=== PATIENT | male | born 1965 | race Two or more races ===

== ENCOUNTER 2017-02-25 13:36 | Inpatient (IN) | payer OTHER ==
[2017-02-25 14:50] VITALS: BMI 28.8
--- NOTE | 2017-02-25 17:14 | HP ---
COWS - Scale Resting Pulse: 0= [place] 80 or Below Sweatin= Chills/Flushing Restless Observation: 3= Extraneous Movement Pupil Size: 0= Normal to Room Light Bone or Joint Aches: 2= Severe Diffuse Aches Runny Nose/ Eye Tearin= Runny Nose/Eyes GI Upset > 30mins: 2= Nausea/Diarrhea Tremor Observation: 2= Slight Tremor Visible Yawning Observation: 0= None Anxiety or Irritability: 2=Irritable/Anxious Goose Flesh Skin: 0=Smooth Skin COWS Score: 14 Admission [facility] Chief Complaint: withdrawal sx Allergies/Adverse Reactions: Allergies Allergy/AdvReac Type Severity Reaction Status Date / Time No Known Allergies Allergy Verified 03/08/14 15:52 History of Present Illness: 51 years old male with long history of heroin nicotine xanax dependence denies medical issue denies mental illness is admitted to detox Exam Limitations: No Limitations - Ebola screening Have you traveled outside of the country in the last 21 days: No Have you had contact with anyone from an Ebola affected area: No Have you been sick,other than usual withdrawal symptoms: No Do you have a fever: No - Review of Systems Constitutional: Changes in sleep, Weight Stable EENT: reports: No Symptoms Reported Respiratory: reports: No Symptoms reported Cardiac: reports: No Symptoms Reported GI: reports: Nausea, Poor Fluid Intake, Abdominal cramping : reports: No Symptoms Reported Musculoskeletal: reports: Back Pain, Joint Pain, Muscle Pain, Neck Pain Integumentary: reports: No Symptoms Reported Neuro: reports: Tremors Endocrine: reports: No Symptoms Reported Hematology: reports: No Symptoms Reported Psychiatric: reports: Judgement Intact, Mood/Affect Appropiate, Orientated x3 Other Systems: Reviewed and Negative Patient History - Patient Medical History Hx Anemia: No Hx Asthma: No Hx Chronic Obstructive Pulmonary Disease (COPD): No Hx Cancer: No Hx Cardiac Disorders: No Hx Congestive Heart Failure: No Hx Hypertension: No (BP: 140/89 dietary control/last dose 3-4 years ago) Hx Hypercholesterolemia: No (dietary control) Hx Pacemaker: No HX Cerebrovascular Accident: No Hx Seizures: No Hx Dementia: No Hx Diabetes: No Hx Gastrointestinal Disorders: No Hx Liver Disease: No Hx Genitourinary Disorders: No Hx Sexually Transmitted Disorders: No Hx Renal Disease (ESRD): No Hx Thyroid Disease: No Hx Human Immunodeficiency Virus (HIV): No Hx Hepatitis C: No Hx Depression: No Hx Suicide Attempt: No Hx Bipolar Disorder: No Hx Schizophrenia: No - Patient Surgical History Past Surgical History: Yes Hx Neurologic Surgery: Yes () Hx Cataract Extraction: No Hx Cardiac Surgery: No Hx Lung Surgery: No Hx Breast Surgery: No Hx Breast Biopsy: No Hx Abdominal Surgery: No Hx Appendectomy: No Hx Cholecystectomy: No Hx Genitourinary Surgery: No Hx Orthopedic Surgery: No Anesthesia Reaction: No - PPD History Previous Implant?: Yes Documented Results: Negative w/proof Implanted On Prior [facility] Admission?: Yes Date: 02/22/17 Results: 0mm PPD to be Administered?: No - Smoking Cessation Smoking history: Current every day smoker Have you smoked in the past 12 months: Yes Aproximately how many cigarettes per day: 20 Cigars Per Day: 0 Hx Chewing Tobacco Use: No Initiated information on smoking cessation: Yes 'Breaking Loose' booklet given: 02/25/17 - Substance & Tx. History Hx Alcohol Use: No Hx Substance Use: Yes Substance Use Type: Heroin, Tranquilizers Hx Substance Use Treatment: Yes (2014) - Substances Abused Heroin Route: Inhalation Frequency: Daily Amount used: 5 bags Age of first use: 50 Date of Last Use: 02/25/17 Alprazolam (Xanax) Route: Oral Frequency: 3-6 times per week Amount used: 2mg Age of first use: 50 Date of Last Use: 02/11/17 Percocet Route: Oral Frequency: 3-6 times per week Amount used: 1-2 tabs Age of first use: 32 Date of Last Use: 02/11/17 Family Disease History - Family Disease History Family Disease History: CA: Grandparent, Father, Sister Admission Physical Exam BHS - Vital Signs Vital Signs: Vital Signs - 24 hr 02/25/17 14:48 Temperature 97.4 F L Pulse Rate 73 Respiratory 20 Rate Blood Pressure 140/89 - Physical General Appearance: Yes: Nourished, Appropriately Dressed, Mild Distress, Tremorous, Irritable, Sweating, Anxious HEENTM: Yes: Hearing grossly Normal, Normal ENT Inspection, Normocephalic, Normal Voice Respiratory: Yes: Chest Non-Tender, Lungs Clear, Normal Breath Sounds, No Respiratory Distress, No Accessory Muscle Use Neck: Yes: Supple, Trachea in good position Breast: Yes: Breasts Symetrical Cardiology: Yes: Regular Rhythm, Regular Rate, S1, S2 Abdominal: Yes: Non Tender, Soft, Increased Bowel Sounds Genitourinary: Yes: Within Normal Limits Back: Yes: Normal Inspection, Surgical Scar Musculoskeletal: Yes: full range of Motion, Gait Steady, Back pain, Muscle Pain Extremities: Yes: Normal Inspection, Normal Range of Motion, Non-Tender, Tremors Neurological: Yes: Fully Oriented, Alert, Motor Strength 5/5, Normal Mood/Affect , Normal Response Integumentary: Yes: Warm Lymphatic: Yes: Within Normal Limits - Diagnostic (1) Opioid dependence with withdrawal Current Visit: Yes Status: Acute (2) Nicotine dependence Current Visit: Yes Status: Acute Qualifiers: Nicotine product type: cigarettes Substance use status: in withdrawal Qualified Code(s): F17.213 - Nicotine dependence, cigarettes, with withdrawal; F17.213 - Nicotine dependence, cigarettes, with withdrawal (3) History of hypertension Current Visit: Yes Status: Resolved Comment: DIETARY CONTROL (4) History of hyperlipidemia Current Visit: Yes Status: Resolved Comment: DIETARY CONTROL (5) History of lumbar fusion Current Visit: Yes Status: Resolved Comment: 1993 Cleared for Admission [facility] - Detox or Rehab [facility] Level of Care: Medically Managed Detox Regimen/Protocol: Methadone [facility] Breath Alcohol Content Breath Alcohol Content: 0 Urine Drug Screen - Results Drug Screen Negative: No Urine Drug Screen Results: OPI-Opiates, PCP-Phencyclidine, BZO-Benzodiazepines
[2017-02-25] MEDS ORDERED: ACETAMINOPHEN 325 MG TABLET (FP) PO PRN (17:26)
[2017-02-25] MEDS ORDERED: LOPERAMIDE HCL 2 MG CAPSULE PO PRN (17:26)
[2017-02-25] MEDS ORDERED: MENTHOL/PHENOL 1 EACH UD MM PRN (17:26)
[2017-02-25] MEDS ORDERED: MAG HYDROX/AL HYDROX/SIMETH 30 ML UNIT-DOSE CUP PO PRN (17:26)
[2017-02-25] MEDS ORDERED: MAGNESIUM CITRATE 300 ML BOTTLE PO PRN (17:26)
[2017-02-25] MEDS ORDERED: NICOTINE POLACRILEX 4 MG GUM BUC PRN (17:26)
[2017-02-25] MEDS ORDERED: P-EPHED 60MG/TRIPROLIDI 2.5MG TABLET PO PRN (17:26)
[2017-02-25] MEDS ORDERED: MAGNESIUM HYDROX 2400MG/30ML ORAL SUSPENSION 30 ML CUP PO PRN (17:26)
[2017-02-25] MEDS ORDERED: IBUPROFEN 400 MG TABLET (FP) PO PRN (17:26)
[2017-02-25] MEDS ORDERED: guaiFENesin/D-METHORPHAN HB 10 ML UNIT-DOSE CUPS PO PRN (17:26)
[2017-02-25] MEDS ORDERED: METHADONE HCL 10 MG TABLET (FOR DETOX USE ONLY) PO ONE ×2 (18:45→23:00)
[2017-02-25] MEDS: diazePAM 5 MG TABLET PO PRN (19:25)
[2017-02-25] MEDS: THIAMINE HCL 100 MG TABLET (FP) PO SCH (22:13)
[2017-02-25] MEDS: diphenhydrAMINE HCL 50 MG CAPSULE PO PRN (22:14)
[2017-02-25 23:18] LABS: URINE APPEARANCE SLCLOUDY; URINE BILIRUBIN NEGATIVE (NEGATIVE); URINE BLOOD NEGATIVE (NEGATIVE); URINE COLOR YELLOW; URINE GLUCOSE (UA) NEGATIVE (NEGATIVE); URINE KETONE TRACE (NEGATIVE); URINE LEUK ESTERASE NEGATIVE (NEGATIVE); URINE NITRITE NEGATIVE (NEGATIVE); URINE PROTEIN NEGATIVE (NEGATIVE); URINE UROBILINOGEN NEGATIVE mg/dL (0.2-1.0)
[2017-02-26] MEDS: diazePAM 5 MG TABLET PO PRN ×4 (05:57→22:16)
[2017-02-26 09:44] LABS: MCH 29.2 pg (25.7-33.7); MCHC 33.5 g/dl (32.0-35.9); MEAN CELL VOLUME 87.1 fl (80-96); PLATELET COUNT 200 K/MM3 (134-434); RDW 13.4 % (11.9-15.9); WHITE BLOOD COUNT 7.7 K/mm3 (4.0-10.0)
[2017-02-26] MEDS ORDERED: METHADONE HCL 10 MG TABLET (FOR DETOX USE ONLY) PO ONE (10:00)
[2017-02-26 10:02] LABS: ALBUMIN 3.4 g/dl (3.4-5.0); ALK PHOS 70 U/L (45-117); ANION GAP 6 (8-16); BILIRUBIN,TOTAL 0.8 mg/dL (0.2-1.0); CALCIUM 8.5 mg/dL (8.5-10.1); CO2 28 mmol/L (21-32); CREATININE 0.8 mg/dL (0.7-1.3); GLUCOSE,RANDOM 107 mg/dL (74-106); SGOT/AST 17 U/L (15-37); SGPT/ALT 23 U/L (12-78); TOT PROT 6.4 g/dl (6.4-8.2)
[2017-02-26] MEDS: PRENATAL VITAMINS W/ FOLIC ACID TABLET (FP) PO SCH (10:17)
[2017-02-26] MEDS: NICOTINE 21 MG/24 HOURS TOPICAL PATCH TD SCH (10:18)
--- NOTE | 2017-02-26 12:40 | PN ---
BHS COWS - Scale Resting Pulse: 1= [place] 81-100 Sweatin=Flushed/Facial Moisture Restless Observation: 1= Difficult to Sit Still Pupil Size: 0= Normal to Room Light Bone or Joint Aches: 2= Severe Diffuse Aches Runny Nose/ Eye Tearin= Nasal Congestion GI Upset > 30mins: 1= Stomach Cramp Tremor Observation of Outstretched Hands: 1= Tremor [place], Not Seen Yawning Observation: 1= 1-2x During Session Anxiety or Irritability: 2=Irritable/Anxious Goose Flesh Skin: 3=Piloerection COWS Score: 15 BHS Progress Note (SOAP) Subjective: Stomach Cramping, Anxious, Sweating. Objective: PT. A & O X 3. NO ACUTE DISTRESS. PT. DENIES CHEST PAIN. 02/26/17 12:37 Vital Signs Temperature 96.9 F L 02/26/17 09:40 Pulse Rate 97 H 02/26/17 09:40 Respiratory Rate 18 02/26/17 09:40 Blood Pressure 133/75 02/26/17 09:40 O2 Sat by Pulse Oximetry (%) Laboratory Tests 02/25/17 02/26/17 02/26/17 21:38 07:00 07:00 WBC 7.7 RBC 4.81 Hgb 14.0 Hct 41.9 MCV 87.1 MCH 29.2 MCHC 33.5 RDW 13.4 Plt Count 200 MPV 9.0 Sodium 140 Potassium 4.1 Chloride 106 Carbon Dioxide 28 Anion Gap 6 L BUN 15 Creatinine 0.8 Creat Clearance w eGFR > 60 Random Glucose 107 H Calcium 8.5 Total Bilirubin 0.8 AST 17 ALT 23 Alkaline Phosphatase 70 Total Protein 6.4 Albumin 3.4 Urine Color Yellow Urine Appearance Slcloudy Urine pH 5.0 Ur Specific [place] >= 1.030 H Urine Protein Negative Urine Glucose (UA) Negative Urine Ketones Trace H Urine Blood Negative Urine Nitrite Negative Urine Bilirubin Negative Urine Urobilinogen Negative RPR Titer 02/26/17 07:00 WBC RBC Hgb Hct MCV MCH MCHC RDW Plt Count MPV Sodium Potassium Chloride Carbon Dioxide Anion Gap BUN Creatinine Creat Clearance w eGFR Random Glucose Calcium Total Bilirubin AST ALT Alkaline Phosphatase Total Protein Albumin Urine Color Urine Appearance Urine pH Ur Specific [place] Urine Protein Urine Glucose (UA) Urine Ketones Urine Blood Urine Nitrite Urine Bilirubin Urine Urobilinogen RPR Titer Nonreactive LABS NOTED. 02/26/17 12:40 Assessment: 02/26/17 12:38 WITHDRAWAL SYMPTOMS. Plan: CONTINUE DETOX.
[2017-02-26] MEDS: THIAMINE HCL 100 MG TABLET (FP) PO SCH (22:15)
[2017-02-26] MEDS: diphenhydrAMINE HCL 50 MG CAPSULE PO PRN (22:16)
[2017-02-27] MEDS: diazePAM 5 MG TABLET PO PRN ×4 (06:03→22:16)
[2017-02-27] MEDS: PRENATAL VITAMINS W/ FOLIC ACID TABLET (FP) PO SCH (09:16)
[2017-02-27] MEDS: NICOTINE 21 MG/24 HOURS TOPICAL PATCH TD SCH (09:17)
[2017-02-27] MEDS ORDERED: METHADONE HCL 5 MG TABLET (FOR DETOX USE ONLY) PO ONE (10:00)
--- NOTE | 2017-02-27 12:06 | PN ---
[facility] CIWA - CIWA Score Nausea/Vomitin-No Nausea/No Vomiting Muscle Tremors: 4-Moderate,w/Arms Extend Anxiety: 4-Mod. Anxious/Guarded Agitation: 2 Paroxysmal Sweats: 3 Orientation: 0-Oriented Tacttile Disturbances: 1-Very Mild Itch/Numbness Auditory Disturbances: 0-None Visual Disturbances: 3-Moderate Sensitivity Headache: 0-None Present CIWA-Ar Total Score: 17 BHS Progress Note (SOAP) Subjective: Tremors, Body Aches, Sweating. Objective: PT. A & O X 3, OBSERVED AMBULATING ON UNIT. NO ACUTE DISTRESS. PT. DENIES CHEST PAIN. 02/27/17 12:04 Vital Signs Temperature 97.2 F L 02/27/17 09:19 Pulse Rate 68 02/27/17 09:19 Respiratory Rate 18 02/27/17 09:19 Blood Pressure 158/97 02/27/17 09:19 O2 Sat by Pulse Oximetry (%) Laboratory Tests 02/25/17 02/26/17 02/26/17 21:38 07:00 07:00 WBC 7.7 RBC 4.81 Hgb 14.0 Hct 41.9 MCV 87.1 MCH 29.2 MCHC 33.5 RDW 13.4 Plt Count 200 MPV 9.0 Sodium 140 Potassium 4.1 Chloride 106 Carbon Dioxide 28 Anion Gap 6 L BUN 15 Creatinine 0.8 Creat Clearance w eGFR > 60 Random Glucose 107 H Calcium 8.5 Total Bilirubin 0.8 AST 17 ALT 23 Alkaline Phosphatase 70 Total Protein 6.4 Albumin 3.4 Urine Color Yellow Urine Appearance Slcloudy Urine pH 5.0 Ur Specific [place] >= 1.030 H Urine Protein Negative Urine Glucose (UA) Negative Urine Ketones Trace H Urine Blood Negative Urine Nitrite Negative Urine Bilirubin Negative Urine Urobilinogen Negative RPR Titer 02/26/17 07:00 WBC RBC Hgb Hct MCV MCH MCHC RDW Plt Count MPV Sodium Potassium Chloride Carbon Dioxide Anion Gap BUN Creatinine Creat Clearance w eGFR Random Glucose Calcium Total Bilirubin AST ALT Alkaline Phosphatase Total Protein Albumin Urine Color Urine Appearance Urine pH Ur Specific [place] Urine Protein Urine Glucose (UA) Urine Ketones Urine Blood Urine Nitrite Urine Bilirubin Urine Urobilinogen RPR Titer Nonreactive LABS NOTED. Assessment: 02/27/17 12:05 WITHDRAWAL SYMPTOMS. Plan: CONTINUE DETOX.
--- NOTE | 2017-02-27 14:24 | EKG ---
Test Reason : Blood Pressure : / mmHG Vent. Rate : 061 BPM Atrial Rate : 061 BPM P-R Int : 114 ms QRS Dur : 102 ms QT Int : 412 ms P-R-T Axes : 074 069 062 degrees QTc Int : 414 ms NORMAL SINUS RHYTHM NORMAL ECG NO PREVIOUS ECGS AVAILABLE Confirmed by JANY BECERRA, MAZIN ([id number]) on 02/27/2017 2:24:41 PM Referred By: LINWOOD MCCLURE Confirmed By:MAZIN CARMICHAEL MD
[2017-02-27] MEDS: THIAMINE HCL 100 MG TABLET (FP) PO SCH (22:16)
[2017-02-27] MEDS: diphenhydrAMINE HCL 50 MG CAPSULE PO PRN (22:17)
[2017-02-28] MEDS: diazePAM 5 MG TABLET PO PRN ×2 (05:29→10:04)
[2017-02-28] MEDS ORDERED: METHADONE HCL 5 MG TABLET (FOR DETOX USE ONLY) PO ONE (10:00)
[2017-02-28] MEDS: PRENATAL VITAMINS W/ FOLIC ACID TABLET (FP) PO SCH (10:03)
[2017-02-28] MEDS: NICOTINE 21 MG/24 HOURS TOPICAL PATCH TD SCH (10:03)
--- NOTE | 2017-02-28 12:13 | PN ---
BHS Progress Note (SOAP) Subjective: Body Aches. Objective: PT. A & O X 3, OBSERVED AMBULATING ON UNIT. NO ACUTE DISTRESS. 02/28/17 12:07 Vital Signs Temperature 97.4 F L 02/28/17 10:06 Pulse Rate 85 02/28/17 10:06 Respiratory Rate 18 02/28/17 10:06 Blood Pressure 133/80 02/28/17 10:06 O2 Sat by Pulse Oximetry (%) Laboratory Tests 02/25/17 02/26/17 02/26/17 21:38 07:00 07:00 WBC 7.7 RBC 4.81 Hgb 14.0 Hct 41.9 MCV 87.1 MCH 29.2 MCHC 33.5 RDW 13.4 Plt Count 200 MPV 9.0 Sodium 140 Potassium 4.1 Chloride 106 Carbon Dioxide 28 Anion Gap 6 L BUN 15 Creatinine 0.8 Creat Clearance w eGFR > 60 Random Glucose 107 H Calcium 8.5 Total Bilirubin 0.8 AST 17 ALT 23 Alkaline Phosphatase 70 Total Protein 6.4 Albumin 3.4 Urine Color Yellow Urine Appearance Slcloudy Urine pH 5.0 Ur Specific [place] >= 1.030 H Urine Protein Negative Urine Glucose (UA) Negative Urine Ketones Trace H Urine Blood Negative Urine Nitrite Negative Urine Bilirubin Negative Urine Urobilinogen Negative RPR Titer 02/26/17 07:00 WBC RBC Hgb Hct MCV MCH MCHC RDW Plt Count MPV Sodium Potassium Chloride Carbon Dioxide Anion Gap BUN Creatinine Creat Clearance w eGFR Random Glucose Calcium Total Bilirubin AST ALT Alkaline Phosphatase Total Protein Albumin Urine Color Urine Appearance Urine pH Ur Specific [place] Urine Protein Urine Glucose (UA) Urine Ketones Urine Blood Urine Nitrite Urine Bilirubin Urine Urobilinogen RPR Titer Nonreactive LABS NOTED. Assessment: 02/28/17 12:08 WITHDRAWAL SYMPTOMS. Plan: CONTINUE DETOX. PATIENT REPORTS MINIMAL DETOX SYMPTOMS AND THAT HE FEELS WELL OVERALL. AT PATIENT'S REQUEST, CURRENT DETOX REGIMEN (METHADONE) MODIFIED SO THAT PATIENT MAY BE DISCHARGED FROM DETOX UNIT ON 03/01/2017.
[2017-02-28] MEDS: THIAMINE HCL 100 MG TABLET (FP) PO SCH (22:19)
[2017-02-28] MEDS: diphenhydrAMINE HCL 50 MG CAPSULE PO PRN (22:19)
[2017-03-01] MEDS ORDERED: METHADONE HCL 5 MG TABLET (FOR DETOX USE ONLY) PO ONE (06:00)
[2017-03-01] MEDS ORDERED: METHADONE HCL 10 MG TABLET (FOR DETOX USE ONLY) PO ONE (10:00)
[2017-03-01 10:13] VITALS: BP 142/103; PULSE 82; TEMP 97.5
--- NOTE | 2017-03-01 21:31 | DS ---
[facility] Detox Discharge Summary Admission Date: 02/25/17 Discharge Date: 03/01/17 - History Present History: Opioid Dependence Additional Comments: PATIENT GOING TO [facility] FOR AFTERCARE. PATIENT ALSO PLANS ON RETURNING TO [facility] DR. NAIR FOR SUBOXONE TREATMENT HE DID IN THE PAST. PATIENT WAS DISCHARGED FROM DETOX UNIT IN STABLE MEDICAL CONDITION. Pertinent Past History: History of HTN, History of Hypercholesterolemia, History of Lumbar Spinal Fusion , Nicotine dependence. - Physical Exam Results Vital Signs: Vital Signs Temperature 97.5 F L 03/01/17 10:12 Pulse Rate 82 03/01/17 10:12 Respiratory Rate 18 03/01/17 10:12 Blood Pressure 142/103 03/01/17 10:12 O2 Sat by Pulse Oximetry (%) Pertinent Admission Physical Exam Findings: WITHDRAWAL SYMPTOMS. Laboratory Tests 02/25/17 02/26/17 02/26/17 21:38 07:00 07:00 WBC 7.7 RBC 4.81 Hgb 14.0 Hct 41.9 MCV 87.1 MCH 29.2 MCHC 33.5 RDW 13.4 Plt Count 200 MPV 9.0 Sodium 140 Potassium 4.1 Chloride 106 Carbon Dioxide 28 Anion Gap 6 L BUN 15 Creatinine 0.8 Creat Clearance w eGFR > 60 Random Glucose 107 H Calcium 8.5 Total Bilirubin 0.8 AST 17 ALT 23 Alkaline Phosphatase 70 Total Protein 6.4 Albumin 3.4 Urine Color Yellow Urine Appearance Slcloudy Urine pH 5.0 Ur Specific [place] >= 1.030 H Urine Protein Negative Urine Glucose (UA) Negative Urine Ketones Trace H Urine Blood Negative Urine Nitrite Negative Urine Bilirubin Negative Urine Urobilinogen Negative RPR Titer 02/26/17 07:00 WBC RBC Hgb Hct MCV MCH MCHC RDW Plt Count MPV Sodium Potassium Chloride Carbon Dioxide Anion Gap BUN Creatinine Creat Clearance w eGFR Random Glucose Calcium Total Bilirubin AST ALT Alkaline Phosphatase Total Protein Albumin Urine Color Urine Appearance Urine pH Ur Specific [place] Urine Protein Urine Glucose (UA) Urine Ketones Urine Blood Urine Nitrite Urine Bilirubin Urine Urobilinogen RPR Titer Nonreactive LABS NOTED. - Treatment Hospital Course: Detox Protocol Followed, Detoxed Safely, Responded well, Discharged Condition Good Patient has Accepted a Rehab Referral to: [facility]. - Medication Discharge Medications: Ambulatory Orders NK [No Known Home Medication] 02/25/17 - Diagnosis (1) Nicotine dependence Status: Chronic Qualifiers: Nicotine product type: cigarettes Substance use status: in withdrawal Qualified Code(s): F17.213 - Nicotine dependence, cigarettes, with withdrawal; F17.213 - Nicotine dependence, cigarettes, with withdrawal (2) Opioid dependence with withdrawal Status: Acute (3) History of hypertension Status: Chronic (4) History of hypercholesterolemia Status: Chronic (5) History of lumbar fusion Status: Chronic - AMA Did Patient Leave Against Medical Advice: No
[2017-03-02] MEDS ORDERED: METHADONE HCL 5 MG TABLET (FOR DETOX USE ONLY) PO ONE (06:00)
== END 2017-03-01 09:10 | disposition home or self-care (01) | DRG 897 ==
LOC: YASAS 13:36 → Y3N 18:25
PROVIDERS: ADMIT Internal Medicine; ATTEND Internal Medicine
PROC: HZ2ZZZZ Detoxification Services for Substance Abuse Treatment (ICD-10-PCS; principal; 2017-02-25)
DX: F11.23 Opioid dependence with withdrawal (principal); F17.213 Nicotine dependence, cigarettes, with withdrawal; Z98.1 Arthrodesis status; Z86.79 Personal history of other diseases of the circulatory system
CPT/HCPCS: 36415; 80053; 81003; 85027; 86593; 93005; 93010

== ENCOUNTER 2017-07-05 10:50 | Inpatient (IN) | payer OTHER ==
[2017-07-05 11:27] VITALS: BMI 28.4
--- NOTE | 2017-07-05 11:46 | HP ---
COWS - Scale Resting Pulse: 1= [place] 81-100 Sweatin= Chills/Flushing Restless Observation: 1= Difficult to Sit Still Pupil Size: 0= Normal to Room Light Bone or Joint Aches: 1= Mild Discomfort Runny Nose/ Eye Tearin= Nasal Congestion GI Upset > 30mins: 1= Stomach Cramp Tremor Observation: 1= Tremor [place], Not Seen Yawning Observation: 0= None Anxiety or Irritability: 1=Feels Anxious/Irritable Goose Flesh Skin: 0=Smooth Skin COWS Score: 8 Admission ROS S - HPI Chief Complaint: I'm trying to stop, I have a job lined up Allergies/Adverse Reactions: Allergies Allergy/AdvReac Type Severity Reaction Status Date / Time No Known Allergies Allergy Verified 07/05/17 11:47 History of Present Illness: 52 yo gentleman here for detox from opiates - states he does not use PCP it must have been in a joint he smoked with his brother. Wants to get into methadone program. Denies overdose or seizures. Exam Limitations: No Limitations - Ebola screening Have you traveled outside of the country in the last 21 days: No (N) Have you had contact with anyone from an Ebola affected area: No Have you been sick,other than usual withdrawal symptoms: No Do you have a fever: No - Review of Systems Constitutional: Chills, Loss of Appetite, Night Sweats, Changes in sleep, Weakness EENT: reports: Nose Congestion Respiratory: reports: No Symptoms reported Cardiac: reports: No Symptoms Reported GI: reports: Nausea, Poor Appetite, Indigestion, Abdominal cramping : reports: No Symptoms Reported Musculoskeletal: reports: Back Pain, Joint Pain, Muscle Pain Integumentary: reports: No Symptoms Reported Neuro: reports: No Symptoms reported Endocrine: reports: No Symptoms Reported Hematology: reports: No Symptoms Reported Psychiatric: reports: Judgement Intact, Mood/Affect Appropiate, Orientated x3, Anxious Other Systems: Reviewed and Negative Patient History - Patient Medical History Hx Anemia: No Hx Asthma: No Hx Chronic Obstructive Pulmonary Disease (COPD): No Hx Cancer: No Hx Cardiac Disorders: No Hx Congestive Heart Failure: No Hx Hypertension: No Hx Hypercholesterolemia: No Hx Pacemaker: No HX Cerebrovascular Accident: No Hx Seizures: No Hx Dementia: No Hx Diabetes: No Hx Gastrointestinal Disorders: No Hx Liver Disease: No Hx Genitourinary Disorders: No Hx Sexually Transmitted Disorders: No Hx Renal Disease (ESRD): No Hx Thyroid Disease: No Hx Human Immunodeficiency Virus (HIV): No Hx Hepatitis C: No Hx Depression: No Hx Suicide Attempt: No Hx Bipolar Disorder: No Hx Schizophrenia: No Other Medical History: back pain - Patient Surgical History Past Surgical History: Yes Hx Neurologic Surgery: Yes () Hx Cataract Extraction: No Hx Cardiac Surgery: No Hx Lung Surgery: No Hx Breast Surgery: No Hx Breast Biopsy: No Hx Abdominal Surgery: No Hx Appendectomy: No Hx Cholecystectomy: No Hx Genitourinary Surgery: No Hx Orthopedic Surgery: No Anesthesia Reaction: No - PPD History Previous Implant?: Yes Documented Results: Negative w/proof Implanted On Prior R Admission?: Yes Date: 02/22/17 Results: 0mm PPD to be Administered?: No - Reproductive History Patient is a Female of Child Bearing Age (11 -55 yrs old): No (male) - Smoking Cessation Smoking history: Current every day smoker Have you smoked in the past 12 months: Yes Aproximately how many cigarettes per day: 20 Cigars Per Day: 0 Hx Chewing Tobacco Use: No Initiated information on smoking cessation: Yes 'Breaking Loose' booklet given: 07/05/17 (give on floor) - Substances Abused heroin Route: Inhalation Frequency: 3-6 times per week Amount used: 5 bags Age of first use: 35 Date of Last Use: 07/04/17 pcp Route: Smoking Frequency: 1-3 times last 30 days Amount used: joint Age of first use: 52 Date of Last Use: 06/30/17 Family Disease History - Family Disease History Family Disease History: [place]: Grandparent, Father (living, ), Sister (4 living - one with breast cancer), Other: Father, Mother (living, healthy), Brother (step brother - healthy), Sister, Son (one - living - healthy), Daughter (one - anxiety) Admission Physical Exam BHS - Vital Signs Vital Signs: Vital Signs - 24 hr 07/05/17 11:04 Temperature 98.6 F Pulse Rate 88 Respiratory 20 Rate Blood Pressure 150/90 - Physical General Appearance: Yes: Nourished, Appropriately Dressed, Mild Distress HEENTM: Yes: Hearing grossly Normal, Normocephalic, Normal Voice, Pharynx Normal Respiratory: Yes: Normal Breath Sounds, No Respiratory Distress Neck: Yes: No masses,lesions,Nodules, Supple Breast: Yes: Breast Exam Deferred Cardiology: Yes: Regular Rhythm, Regular Rate Abdominal: Yes: Non Tender, Flat, Soft Genitourinary: Yes: Within Normal Limits Back: Yes: Decreased Range of Motion, Surgical Scar Musculoskeletal: Yes: Back pain, Joint Stiffness, Muscle Pain Extremities: Yes: Normal Inspection Neurological: Yes: Fully Oriented, Alert, Normal Mood/Affect, Normal Response Integumentary: Yes: Normal Color, Warm Lymphatic: Yes: Within Normal Limits - Diagnostic (1) Opioid dependence with withdrawal Current Visit: Yes Status: Acute (2) Back pain, chronic Current Visit: Yes Status: Acute Qualifiers: Back pain location: low back pain Back pain laterality: bilateral Sciatica presence: without sciatica Qualified Code(s): M54.5 - Low back pain; G89.29 - Other chronic pain; G89.29 - Other chronic pain (3) Knee pain, bilateral Current Visit: Yes Status: Chronic Qualifiers: Chronicity: chronic Qualified Code(s): M25.561 - Pain in right knee; M25.562 - Pain in left knee; M25.562 - Pain in left knee; G89.29 - Other chronic pain; G89.29 - Other chronic pain (4) History of lumbar fusion Current Visit: Yes Status: Chronic (5) Nicotine dependence Current Visit: Yes Status: Chronic Qualifiers: Nicotine product type: cigarettes Substance use status: in withdrawal Qualified Code(s): F17.213 - Nicotine dependence, cigarettes, with withdrawal Cleared for Admission [facility] - Detox or Rehab [facility] Level of Care: Medically Managed Detox Regimen/Protocol: Methadone [facility] Breath Alcohol Content Breath Alcohol Content: 0 Urine Drug Screen - Results Drug Screen Negative: No Urine Drug Screen Results: OPI-Opiates, PCP-Phencyclidine
[2017-07-05] MEDS ORDERED: MENTHOL/PHENOL 1 EACH UD MM PRN (11:54)
[2017-07-05] MEDS ORDERED: guaiFENesin/D-METHORPHAN HB 10 ML UNIT-DOSE CUPS PO PRN (11:54)
[2017-07-05] MEDS ORDERED: P-EPHED 60MG/TRIPROLIDI 2.5MG TABLET PO PRN (11:54)
[2017-07-05] MEDS ORDERED: ACETAMINOPHEN 325 MG TABLET (FP) PO PRN (11:54)
[2017-07-05] MEDS ORDERED: MAGNESIUM HYDROX 2400MG/30ML ORAL SUSPENSION 30 ML CUP PO PRN (11:54)
[2017-07-05] MEDS ORDERED: LOPERAMIDE HCL 2 MG CAPSULE PO PRN (11:54)
[2017-07-05] MEDS ORDERED: MAGNESIUM CITRATE 300 ML BOTTLE PO PRN (11:54)
[2017-07-05] MEDS ORDERED: METHADONE HCL 10 MG TABLET (FOR DETOX USE ONLY) PO ONE ×2 (12:15→23:00)
[2017-07-05] MEDS: diazePAM 5 MG TABLET PO PRN ×3 (12:47→22:08)
[2017-07-05] MEDS: NICOTINE 21 MG/24 HOURS TOPICAL PATCH TD SCH (12:52)
--- NOTE | 2017-07-05 15:58 | EKG ---
Test Reason : Blood Pressure : / mmHG Vent. Rate : 074 BPM Atrial Rate : 074 BPM P-R Int : 138 ms QRS Dur : 090 ms QT Int : 390 ms P-R-T Axes : 058 057 044 degrees QTc Int : 432 ms NORMAL SINUS RHYTHM NONSPECIFIC T WAVE ABNORMALITY ABNORMAL ECG WHEN COMPARED WITH ECG OF 25-FEB-2017 19:34, NONSPECIFIC T WAVE ABNORMALITY NOW EVIDENT IN LATERAL LEADS Confirmed by AALIYAH BECERRA, BROOKE ([id number]) on 07/05/2017 3:58:30 PM Referred By: Confirmed By:BROOKE FISCHER MD
[2017-07-05] MEDS: MAG HYDROX/AL HYDROX/SIMETH 30 ML UNIT-DOSE CUP PO PRN (16:27)
[2017-07-05 18:27] LABS: URINE APPEARANCE TURBID; URINE BILIRUBIN NEGATIVE (NEGATIVE); URINE BLOOD NEGATIVE (NEGATIVE); URINE COLOR AMBER; URINE GLUCOSE (UA) NEGATIVE (NEGATIVE); URINE KETONE TRACE (NEGATIVE); URINE LEUK ESTERASE NEGATIVE (NEGATIVE); URINE NITRITE NEGATIVE (NEGATIVE); URINE PROTEIN NEGATIVE (NEGATIVE); URINE UROBILINOGEN NEGATIVE mg/dL (0.2-1.0)
[2017-07-05] MEDS: IBUPROFEN 400 MG TABLET (FP) PO PRN (22:07)
[2017-07-05] MEDS: THIAMINE HCL 100 MG TABLET (FP) PO SCH (22:08)
[2017-07-05] MEDS ORDERED: cloNIDine HCL 0.1 MG TABLET PO ONE (23:35)
[2017-07-05] MEDS: hydrOXYzine PAMOATE 50 MG CAPSULE (FP) PO PRN (23:41)
[2017-07-06] MEDS: diazePAM 5 MG TABLET PO PRN ×4 (06:30→20:46)
[2017-07-06] MEDS: cloNIDine HCL 0.1 MG TABLET PO PRN ×2 (07:49→17:05)
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
[2017-07-06] MEDS ORDERED: METHADONE HCL 10 MG TABLET (FOR DETOX USE ONLY) PO ONE (10:00)
[2017-07-06 10:14] LABS: HEMATOCRIT 41.9 % (35.4-49); HEMOGLOBIN 13.8 GM/dL (11.7-16.9); MCH 28.8 pg (25.7-33.7); MCHC 32.9 g/dl (32.0-35.9); MEAN CELL VOLUME 87.5 fl (80-96); MEAN PLT VOLUME 8.9 fl (7.5-11.1); PLATELET COUNT 163 K/MM3 (134-434); RBC 4.79 M/mm3 (4.00-5.60); RDW 13.9 % (11.9-15.9); WHITE BLOOD COUNT 7.6 K/mm3 (4.0-10.0)
[2017-07-06] MEDS: PRENATAL VITAMINS W/ FOLIC ACID TABLET (FP) PO SCH (10:16)
[2017-07-06] MEDS: NICOTINE 21 MG/24 HOURS TOPICAL PATCH TD SCH (10:16)
[2017-07-06] MEDS: IBUPROFEN 400 MG TABLET (FP) PO PRN ×2 (10:16→22:11)
[2017-07-06 10:22] LABS: ALBUMIN 3.5 g/dl (3.4-5.0); ANION GAP 6 (8-16); BLOOD UREA NITROGEN 14 mg/dL (7-18); CALCIUM 8.1 mg/dL (8.5-10.1); CHLORIDE 108 mmol/L (98-107); CO2 27 mmol/L (21-32); CREATININE 0.8 mg/dL (0.7-1.3); GLUCOSE,RANDOM 89 mg/dL (74-106); SGOT/AST 16 U/L (15-37); SGPT/ALT 29 U/L (12-78); SODIUM 141 mmol/L (136-145)
[2017-07-06 10:23] LABS: ALK PHOS 70 U/L (45-117); BILIRUBIN,TOTAL 0.6 mg/dL (0.2-1.0); TOT PROT 6.3 g/dl (6.4-8.2)
--- NOTE | 2017-07-06 20:33 | PN ---
BHS COWS - Scale Resting Pulse: 0= [place] 80 or Below Sweatin=Flushed/Facial Moisture Restless Observation: 3= Extraneous Movement Pupil Size: 1= Pupils >than Normal Bone or Joint Aches: 1= Mild Discomfort Runny Nose/ Eye Tearin= Nasal Congestion GI Upset > 30mins: 2= Nausea/Diarrhea Tremor Observation of Outstretched Hands: 2= Slight Tremor Visible Yawning Observation: 1= 1-2x During Session Anxiety or Irritability: 0= None Goose Flesh Skin: 0=Smooth Skin COWS Score: 13 BHS Progress Note (SOAP) Subjective: joint pains anxious Objective: 07/06/17 20:31 moving about frequently A & O x 3 Vital Signs Temperature 99.3 F 07/06/17 17:50 Pulse Rate 68 07/06/17 17:50 Respiratory Rate 18 07/06/17 17:50 Blood Pressure 130/80 07/06/17 17:50 O2 Sat by Pulse Oximetry (%) Laboratory Last Values WBC 7.6 K/mm3 (4.0-10.0) 07/06/17 08:00 RBC 4.79 M/mm3 (4.00-5.60) 07/06/17 08:00 Hgb 13.8 GM/dL (11.7-16.9) 07/06/17 08:00 Hct 41.9 % (35.4-49) 07/06/17 08:00 MCV 87.5 fl (80-96) 07/06/17 08:00 MCH 28.8 pg (25.7-33.7) 07/06/17 08:00 MCHC 32.9 g/dl (32.0-35.9) 07/06/17 08:00 RDW 13.9 % (11.9-15.9) 07/06/17 08:00 Plt Count 163 K/MM3 (134-434) 07/06/17 08:00 MPV 8.9 fl (7.5-11.1) 07/06/17 08:00 Sodium 141 mmol/L (136-145) 07/06/17 08:00 Potassium 4.0 mmol/L (3.5-5.1) 07/06/17 08:00 Chloride 108 mmol/L (98-107) H 07/06/17 08:00 Carbon Dioxide 27 mmol/L (21-32) 07/06/17 08:00 Anion Gap 6 (8-16) L 07/06/17 08:00 BUN 14 mg/dL (7-18) 07/06/17 08:00 Creatinine 0.8 mg/dL (0.7-1.3) 07/06/17 08:00 Creat Clearance w eGFR > 60 (>60) 07/06/17 08:00 Random Glucose 89 mg/dL (74-106) 07/06/17 08:00 Calcium 8.1 mg/dL (8.5-10.1) L 07/06/17 08:00 Total Bilirubin 0.6 mg/dL (0.2-1.0) D 07/06/17 08:00 AST 16 U/L (15-37) 07/06/17 08:00 ALT 29 U/L (12-78) D 07/06/17 08:00 Alkaline Phosphatase 70 U/L (45-117) 07/06/17 08:00 Total Protein 6.3 g/dl (6.4-8.2) L 07/06/17 08:00 Albumin 3.5 g/dl (3.4-5.0) 07/06/17 08:00 Urine Color Ester 07/05/17 13:48 Urine Appearance Turbid 07/05/17 13:48 Urine pH 6.0 (5.0-8.0) 07/05/17 13:48 Ur Specific [place] 1.026 (1.001-1.035) 07/05/17 13:48 Urine Protein Negative (NEGATIVE) 07/05/17 13:48 Urine Glucose (UA) Negative (NEGATIVE) 07/05/17 13:48 Urine Ketones Trace (NEGATIVE) H 07/05/17 13:48 Urine Blood Negative (NEGATIVE) 07/05/17 13:48 Urine Nitrite Negative (NEGATIVE) 07/05/17 13:48 Urine Bilirubin Negative (NEGATIVE) 07/05/17 13:48 Urine Urobilinogen Negative mg/dL (0.2-1.0) 07/05/17 13:48 Ur Leukocyte Esterase Negative (NEGATIVE) 07/05/17 13:48 RPR Titer Nonreactive (NONREACTIVE) 07/06/17 08:00 labs noted Assessment: 02/11/18 20:32 withdrawal sx Dehydration Plan: continue detox Increase hydration
[2017-07-06] MEDS: ZOLPIDEM TARTRATE 5 MG TABLET PO PRN (22:09)
[2017-07-06] MEDS: THIAMINE HCL 100 MG TABLET (FP) PO SCH (22:09)
[2017-07-06] MEDS: hydrOXYzine PAMOATE 50 MG CAPSULE (FP) PO PRN (22:10)
[2017-07-07] MEDS: diazePAM 5 MG TABLET PO PRN ×4 (07:56→22:04)
[2017-07-07] MEDS ORDERED: METHADONE HCL 5 MG TABLET (FOR DETOX USE ONLY) PO ONE (10:00)
[2017-07-07] MEDS: NICOTINE 21 MG/24 HOURS TOPICAL PATCH TD SCH (10:13)
[2017-07-07] MEDS: PRENATAL VITAMINS W/ FOLIC ACID TABLET (FP) PO SCH (10:13)
[2017-07-07] MEDS: cloNIDine HCL 0.1 MG TABLET PO SCH ×2 (10:13→22:04)
[2017-07-07] MEDS: IBUPROFEN 400 MG TABLET (FP) PO PRN (10:15)
--- NOTE | 2017-07-07 11:43 | PN ---
BHS COWS - Scale Resting Pulse: 0= [place] 80 or Below Sweatin= Chills/Flushing Restless Observation: 3= Extraneous Movement Pupil Size: 0= Normal to Room Light Bone or Joint Aches: 4=Acute Joint/Muscle Pain Runny Nose/ Eye Tearin= Nasal Congestion GI Upset > 30mins: 1= Stomach Cramp Tremor Observation of Outstretched Hands: 1= Tremor [place], Not Seen Yawning Observation: 2= >3x During Session Anxiety or Irritability: 2=Irritable/Anxious Goose Flesh Skin: 0=Smooth Skin COWS Score: 15 BHS Progress Note (SOAP) Subjective: ANXIETY,SWEAT,RESTLESSNESS. Objective: 07/07/17 11:43 Vital Signs Temperature 97.4 F L 07/07/17 09:35 Pulse Rate 72 07/07/17 09:35 Respiratory Rate 18 07/07/17 09:35 Blood Pressure 155/94 07/07/17 09:35 O2 Sat by Pulse Oximetry (%) Laboratory Last Values WBC 7.6 K/mm3 (4.0-10.0) 07/06/17 08:00 RBC 4.79 M/mm3 (4.00-5.60) 07/06/17 08:00 Hgb 13.8 GM/dL (11.7-16.9) 07/06/17 08:00 Hct 41.9 % (35.4-49) 07/06/17 08:00 MCV 87.5 fl (80-96) 07/06/17 08:00 MCH 28.8 pg (25.7-33.7) 07/06/17 08:00 MCHC 32.9 g/dl (32.0-35.9) 07/06/17 08:00 RDW 13.9 % (11.9-15.9) 07/06/17 08:00 Plt Count 163 K/MM3 (134-434) 07/06/17 08:00 MPV 8.9 fl (7.5-11.1) 07/06/17 08:00 Sodium 141 mmol/L (136-145) 07/06/17 08:00 Potassium 4.0 mmol/L (3.5-5.1) 07/06/17 08:00 Chloride 108 mmol/L (98-107) H 07/06/17 08:00 Carbon Dioxide 27 mmol/L (21-32) 07/06/17 08:00 Anion Gap 6 (8-16) L 07/06/17 08:00 BUN 14 mg/dL (7-18) 07/06/17 08:00 Creatinine 0.8 mg/dL (0.7-1.3) 07/06/17 08:00 Creat Clearance w eGFR > 60 (>60) 07/06/17 08:00 Random Glucose 89 mg/dL (74-106) 07/06/17 08:00 Calcium 8.1 mg/dL (8.5-10.1) L 07/06/17 08:00 Total Bilirubin 0.6 mg/dL (0.2-1.0) D 07/06/17 08:00 AST 16 U/L (15-37) 07/06/17 08:00 ALT 29 U/L (12-78) D 07/06/17 08:00 Alkaline Phosphatase 70 U/L (45-117) 07/06/17 08:00 Total Protein 6.3 g/dl (6.4-8.2) L 07/06/17 08:00 Albumin 3.5 g/dl (3.4-5.0) 07/06/17 08:00 Urine Color [place] 07/05/17 13:48 Urine Appearance Turbid 07/05/17 13:48 Urine pH 6.0 (5.0-8.0) 07/05/17 13:48 Ur Specific [place] 1.026 (1.001-1.035) 07/05/17 13:48 Urine Protein Negative (NEGATIVE) 07/05/17 13:48 Urine Glucose (UA) Negative (NEGATIVE) 07/05/17 13:48 Urine Ketones Trace (NEGATIVE) H 07/05/17 13:48 Urine Blood Negative (NEGATIVE) 07/05/17 13:48 Urine Nitrite Negative (NEGATIVE) 07/05/17 13:48 Urine Bilirubin Negative (NEGATIVE) 07/05/17 13:48 Urine Urobilinogen Negative mg/dL (0.2-1.0) 07/05/17 13:48 Ur Leukocyte Esterase Negative (NEGATIVE) 07/05/17 13:48 RPR Titer Nonreactive (NONREACTIVE) 07/06/17 08:00 Assessment: 07/07/17 11:43 WITHDRAWAL SX Plan: CONTINUE DETOX
[2017-07-07] MEDS: MAG HYDROX/AL HYDROX/SIMETH 30 ML UNIT-DOSE CUP PO PRN (13:58)
[2017-07-07] MEDS ORDERED: RANITIDINE HCL 150 MG TABLET (FP) PO ONE (17:00)
[2017-07-07] MEDS: THIAMINE HCL 100 MG TABLET (FP) PO SCH (22:04)
[2017-07-07] MEDS: RANITIDINE HCL 150 MG TABLET (FP) PO SCH (22:04)
[2017-07-07] MEDS: ZOLPIDEM TARTRATE 5 MG TABLET PO PRN (22:05)
[2017-07-07] MEDS: hydrOXYzine PAMOATE 50 MG CAPSULE (FP) PO PRN (23:40)
[2017-07-08] MEDS: diazePAM 5 MG TABLET PO PRN ×2 (07:02→10:21)
[2017-07-08] MEDS ORDERED: CYCLOBENZAPRINE HCL 10 MG TABLET (FP) PO ONE (08:50)
[2017-07-08] MEDS ORDERED: METHADONE HCL 5 MG TABLET (FOR DETOX USE ONLY) PO ONE (10:00)
[2017-07-08] MEDS: PRENATAL VITAMINS W/ FOLIC ACID TABLET (FP) PO SCH (10:17)
[2017-07-08] MEDS: RANITIDINE HCL 150 MG TABLET (FP) PO SCH ×2 (10:17→22:09)
[2017-07-08] MEDS: cloNIDine HCL 0.1 MG TABLET PO SCH ×2 (10:17→22:08)
[2017-07-08] MEDS: NICOTINE 21 MG/24 HOURS TOPICAL PATCH TD SCH (10:18)
--- NOTE | 2017-07-08 10:44 | PN ---
S Progress Note (SOAP) Subjective: ANXIETY,SWEATS,MUSCLE/ABDOMINAL CRAMPS,IRRITABILITY,INTERMITTENT SLEEP. Objective: 07/08/17 10:43 Vital Signs Temperature 97.7 F 07/08/17 09:44 Pulse Rate 92 H 07/08/17 09:44 Respiratory Rate 18 07/08/17 09:44 Blood Pressure 138/87 07/08/17 09:44 O2 Sat by Pulse Oximetry (%) Laboratory Last Values WBC 7.6 K/mm3 (4.0-10.0) 07/06/17 08:00 RBC 4.79 M/mm3 (4.00-5.60) 07/06/17 08:00 Hgb 13.8 GM/dL (11.7-16.9) 07/06/17 08:00 Hct 41.9 % (35.4-49) 07/06/17 08:00 MCV 87.5 fl (80-96) 07/06/17 08:00 MCH 28.8 pg (25.7-33.7) 07/06/17 08:00 MCHC 32.9 g/dl (32.0-35.9) 07/06/17 08:00 RDW 13.9 % (11.9-15.9) 07/06/17 08:00 Plt Count 163 K/MM3 (134-434) 07/06/17 08:00 MPV 8.9 fl (7.5-11.1) 07/06/17 08:00 Sodium 141 mmol/L (136-145) 07/06/17 08:00 Potassium 4.0 mmol/L (3.5-5.1) 07/06/17 08:00 Chloride 108 mmol/L (98-107) H 07/06/17 08:00 Carbon Dioxide 27 mmol/L (21-32) 07/06/17 08:00 Anion Gap 6 (8-16) L 07/06/17 08:00 BUN 14 mg/dL (7-18) 07/06/17 08:00 Creatinine 0.8 mg/dL (0.7-1.3) 07/06/17 08:00 Creat Clearance w eGFR > 60 (>60) 07/06/17 08:00 Random Glucose 89 mg/dL (74-106) 07/06/17 08:00 Calcium 8.1 mg/dL (8.5-10.1) L 07/06/17 08:00 Total Bilirubin 0.6 mg/dL (0.2-1.0) D 07/06/17 08:00 AST 16 U/L (15-37) 07/06/17 08:00 ALT 29 U/L (12-78) D 07/06/17 08:00 Alkaline Phosphatase 70 U/L (45-117) 07/06/17 08:00 Total Protein 6.3 g/dl (6.4-8.2) L 07/06/17 08:00 Albumin 3.5 g/dl (3.4-5.0) 07/06/17 08:00 Urine Color Ester 07/05/17 13:48 Urine Appearance Turbid 07/05/17 13:48 Urine pH 6.0 (5.0-8.0) 07/05/17 13:48 Ur Specific [place] 1.026 (1.001-1.035) 07/05/17 13:48 Urine Protein Negative (NEGATIVE) 07/05/17 13:48 Urine Glucose (UA) Negative (NEGATIVE) 07/05/17 13:48 Urine Ketones Trace (NEGATIVE) H 07/05/17 13:48 Urine Blood Negative (NEGATIVE) 07/05/17 13:48 Urine Nitrite Negative (NEGATIVE) 07/05/17 13:48 Urine Bilirubin Negative (NEGATIVE) 07/05/17 13:48 Urine Urobilinogen Negative mg/dL (0.2-1.0) 07/05/17 13:48 Ur Leukocyte Esterase Negative (NEGATIVE) 07/05/17 13:48 RPR Titer Nonreactive (NONREACTIVE) 07/06/17 08:00 Assessment: 07/08/17 10:43 WITHDRAWAL SX Plan: CONTINIE DETOX FLEXERIL DIRECTED.
[2017-07-08] MEDS: hydrOXYzine PAMOATE 50 MG CAPSULE (FP) PO PRN ×2 (13:04→18:11)
[2017-07-08] MEDS: CYCLOBENZAPRINE HCL 10 MG TABLET (FP) PO SCH ×2 (13:04→22:09)
[2017-07-08] MEDS: IBUPROFEN 400 MG TABLET (FP) PO PRN (18:12)
[2017-07-08] MEDS: MAG HYDROX/AL HYDROX/SIMETH 30 ML UNIT-DOSE CUP PO PRN (18:12)
[2017-07-08] MEDS: THIAMINE HCL 100 MG TABLET (FP) PO SCH (22:08)
[2017-07-08] MEDS: ZOLPIDEM TARTRATE 5 MG TABLET PO PRN (22:08)
[2017-07-09] MEDS: CYCLOBENZAPRINE HCL 10 MG TABLET (FP) PO SCH ×3 (05:41→22:07)
[2017-07-09] MEDS: IBUPROFEN 400 MG TABLET (FP) PO PRN (05:43)
[2017-07-09] MEDS ORDERED: METHADONE HCL 10 MG TABLET (FOR DETOX USE ONLY) PO ONE (10:00)
[2017-07-09] MEDS: cloNIDine HCL 0.1 MG TABLET PO SCH ×2 (10:04→22:07)
[2017-07-09] MEDS: RANITIDINE HCL 150 MG TABLET (FP) PO SCH ×2 (10:05→22:07)
[2017-07-09] MEDS: PRENATAL VITAMINS W/ FOLIC ACID TABLET (FP) PO SCH (10:05)
[2017-07-09] MEDS: NICOTINE 21 MG/24 HOURS TOPICAL PATCH TD SCH (10:07)
--- NOTE | 2017-07-09 10:39 | PN ---
BHS Progress Note (SOAP) Subjective: DECREASED ANXIETY,TREMORS,SWEATS. PT WILL FOLLOW UP FOR AFTERCARE AT [facility]. Objective: 07/09/17 10:38 Vital Signs Temperature 96.1 F L 07/09/17 09:26 Pulse Rate 75 07/09/17 09:26 Respiratory Rate 18 07/09/17 09:26 Blood Pressure 148/94 07/09/17 09:26 O2 Sat by Pulse Oximetry (%) Laboratory Last Values WBC 7.6 K/mm3 (4.0-10.0) 07/06/17 08:00 RBC 4.79 M/mm3 (4.00-5.60) 07/06/17 08:00 Hgb 13.8 GM/dL (11.7-16.9) 07/06/17 08:00 Hct 41.9 % (35.4-49) 07/06/17 08:00 MCV 87.5 fl (80-96) 07/06/17 08:00 MCH 28.8 pg (25.7-33.7) 07/06/17 08:00 MCHC 32.9 g/dl (32.0-35.9) 07/06/17 08:00 RDW 13.9 % (11.9-15.9) 07/06/17 08:00 Plt Count 163 K/MM3 (134-434) 07/06/17 08:00 MPV 8.9 fl (7.5-11.1) 07/06/17 08:00 Sodium 141 mmol/L (136-145) 07/06/17 08:00 Potassium 4.0 mmol/L (3.5-5.1) 07/06/17 08:00 Chloride 108 mmol/L (98-107) H 07/06/17 08:00 Carbon Dioxide 27 mmol/L (21-32) 07/06/17 08:00 Anion Gap 6 (8-16) L 07/06/17 08:00 BUN 14 mg/dL (7-18) 07/06/17 08:00 Creatinine 0.8 mg/dL (0.7-1.3) 07/06/17 08:00 Creat Clearance w eGFR > 60 (>60) 07/06/17 08:00 Random Glucose 89 mg/dL (74-106) 07/06/17 08:00 Calcium 8.1 mg/dL (8.5-10.1) L 07/06/17 08:00 Total Bilirubin 0.6 mg/dL (0.2-1.0) D 07/06/17 08:00 AST 16 U/L (15-37) 07/06/17 08:00 ALT 29 U/L (12-78) D 07/06/17 08:00 Alkaline Phosphatase 70 U/L (45-117) 07/06/17 08:00 Total Protein 6.3 g/dl (6.4-8.2) L 07/06/17 08:00 Albumin 3.5 g/dl (3.4-5.0) 07/06/17 08:00 Urine Color Ester 07/05/17 13:48 Urine Appearance Turbid 07/05/17 13:48 Urine pH 6.0 (5.0-8.0) 07/05/17 13:48 Ur Specific [place] 1.026 (1.001-1.035) 07/05/17 13:48 Urine Protein Negative (NEGATIVE) 07/05/17 13:48 Urine Glucose (UA) Negative (NEGATIVE) 07/05/17 13:48 Urine Ketones Trace (NEGATIVE) H 07/05/17 13:48 Urine Blood Negative (NEGATIVE) 07/05/17 13:48 Urine Nitrite Negative (NEGATIVE) 07/05/17 13:48 Urine Bilirubin Negative (NEGATIVE) 07/05/17 13:48 Urine Urobilinogen Negative mg/dL (0.2-1.0) 07/05/17 13:48 Ur Leukocyte Esterase Negative (NEGATIVE) 07/05/17 13:48 RPR Titer Nonreactive (NONREACTIVE) 07/06/17 08:00 Assessment: 07/09/17 10:38 WITHDRAWAL SX Plan: CONTINUE DETOX
[2017-07-09] MEDS ORDERED: NICOTINE POLACRILEX 2 MG GUM BUC PRN (17:30)
[2017-07-09] MEDS: ZOLPIDEM TARTRATE 5 MG TABLET PO PRN (22:07)
[2017-07-09] MEDS: THIAMINE HCL 100 MG TABLET (FP) PO SCH (22:07)
[2017-07-10] MEDS: CYCLOBENZAPRINE HCL 10 MG TABLET (FP) PO SCH (05:42)
[2017-07-10] MEDS ORDERED: METHADONE HCL 5 MG TABLET (FOR DETOX USE ONLY) PO ONE (06:00)
[2017-07-10 06:13] VITALS: PULSE 69; TEMP 96.8
[2017-07-10] MEDS ORDERED: cloNIDine HCL 0.1 MG TABLET PO ONE (06:45)
[2017-07-10 06:47] VITALS: BP 177/105
--- NOTE | 2017-07-10 08:20 | DS ---
[facility] Detox Discharge Summary Admission Date: 07/05/17 Discharge Date: 07/10/17 - History Present History: Opioid Dependence Additional Comments: DETOX COMPLETED. PT D/C'D EARLY TODAY TO F/U AT [facility] AFTERCARE PLANNED. Pertinent Past History: SEE DX BELOW - Physical Exam Results Vital Signs: Vital Signs Temperature 96.8 F L 07/10/17 06:11 Pulse Rate 69 07/10/17 06:11 Respiratory Rate 19 07/10/17 06:11 Blood Pressure 177/105 07/10/17 06:11 O2 Sat by Pulse Oximetry (%) Pertinent Admission Physical Exam Findings: WITHDRAWAL SX Laboratory Last Values WBC 7.6 K/mm3 (4.0-10.0) 07/06/17 08:00 RBC 4.79 M/mm3 (4.00-5.60) 07/06/17 08:00 Hgb 13.8 GM/dL (11.7-16.9) 07/06/17 08:00 Hct 41.9 % (35.4-49) 07/06/17 08:00 MCV 87.5 fl (80-96) 07/06/17 08:00 MCH 28.8 pg (25.7-33.7) 07/06/17 08:00 MCHC 32.9 g/dl (32.0-35.9) 07/06/17 08:00 RDW 13.9 % (11.9-15.9) 07/06/17 08:00 Plt Count 163 K/MM3 (134-434) 07/06/17 08:00 MPV 8.9 fl (7.5-11.1) 07/06/17 08:00 Sodium 141 mmol/L (136-145) 07/06/17 08:00 Potassium 4.0 mmol/L (3.5-5.1) 07/06/17 08:00 Chloride 108 mmol/L (98-107) H 07/06/17 08:00 Carbon Dioxide 27 mmol/L (21-32) 07/06/17 08:00 Anion Gap 6 (8-16) L 07/06/17 08:00 BUN 14 mg/dL (7-18) 07/06/17 08:00 Creatinine 0.8 mg/dL (0.7-1.3) 07/06/17 08:00 Creat Clearance w eGFR > 60 (>60) 07/06/17 08:00 Random Glucose 89 mg/dL (74-106) 07/06/17 08:00 Calcium 8.1 mg/dL (8.5-10.1) L 07/06/17 08:00 Total Bilirubin 0.6 mg/dL (0.2-1.0) D 07/06/17 08:00 AST 16 U/L (15-37) 07/06/17 08:00 ALT 29 U/L (12-78) D 07/06/17 08:00 Alkaline Phosphatase 70 U/L (45-117) 07/06/17 08:00 Total Protein 6.3 g/dl (6.4-8.2) L 07/06/17 08:00 Albumin 3.5 g/dl (3.4-5.0) 07/06/17 08:00 Urine Color Ester 07/05/17 13:48 Urine Appearance Turbid 07/05/17 13:48 Urine pH 6.0 (5.0-8.0) 07/05/17 13:48 Ur Specific [place] 1.026 (1.001-1.035) 07/05/17 13:48 Urine Protein Negative (NEGATIVE) 07/05/17 13:48 Urine Glucose (UA) Negative (NEGATIVE) 07/05/17 13:48 Urine Ketones Trace (NEGATIVE) H 07/05/17 13:48 Urine Blood Negative (NEGATIVE) 07/05/17 13:48 Urine Nitrite Negative (NEGATIVE) 07/05/17 13:48 Urine Bilirubin Negative (NEGATIVE) 07/05/17 13:48 Urine Urobilinogen Negative mg/dL (0.2-1.0) 07/05/17 13:48 Ur Leukocyte Esterase Negative (NEGATIVE) 07/05/17 13:48 RPR Titer Nonreactive (NONREACTIVE) 07/06/17 08:00 - Treatment Hospital Course: Detox Protocol Followed, Detoxed Safely, Responded well, Discharged Condition Good, Rehab Referral Accepted Patient has Accepted a Rehab Referral to: [facility] - Medication Discharge Medications: Ambulatory Orders NK [No Known Home Medication] 02/25/17 - Diagnosis (1) Back pain, chronic Status: Chronic Qualifiers: Back pain location: low back pain Back pain laterality: bilateral Sciatica presence: without sciatica Qualified Code(s): M54.5 - Low back pain; G89.29 - Other chronic pain; G89.29 - Other chronic pain (2) Opioid dependence with withdrawal Status: Acute (3) History of lumbar fusion Status: Chronic (4) Knee pain, bilateral Status: Chronic Qualifiers: Chronicity: chronic Qualified Code(s): M25.561 - Pain in right knee; M25.562 - Pain in left knee; M25.562 - Pain in left knee; G89.29 - Other chronic pain; G89.29 - Other chronic pain (5) Nicotine dependence Status: Acute Qualifiers: Nicotine product type: cigarettes Substance use status: in withdrawal Qualified Code(s): F17.213 - Nicotine dependence, cigarettes, with withdrawal - AMA Did Patient Leave Against Medical Advice: No
== END 2017-07-10 07:45 | disposition home or self-care (01) | DRG 773 ==
LOC: YASAS 10:50 → Y3N 11:53
PROVIDERS: ADMIT Internal Medicine; ATTEND Internal Medicine
PROC: HZ2ZZZZ Detoxification Services for Substance Abuse Treatment (ICD-10-PCS; principal; 2017-07-05)
DX: F11.23 Opioid dependence with withdrawal (principal); F17.213 Nicotine dependence, cigarettes, with withdrawal; F19.280 Other psychoactive substance dependence with psychoactive substance-induced anxiety disorder; F19.282 Other psychoactive substance dependence with psychoactive substance-induced sleep disorder; M54.5 Low back pain; M25.561 Pain in right knee; M25.562 Pain in left knee; G89.29 Other chronic pain; Z98.1 Arthrodesis status
CPT/HCPCS: 36415; 80053; 81003; 85027; 86593; 93005; 93010; J0735

== ENCOUNTER 2020-03-01 04:33 | Day surgery (SDC) | payer OTHER ==
[2020-02-29 19:05] VITALS: BMI 28.1
[2020-03-01] MEDS ORDERED: MIDAZOLAM HCL 2 MG/2 ML SINGLE DOSE VIAL ONE (07:26)
[2020-03-01] MEDS ORDERED: SUCCINYLCHOLINE CHLORIDE 200 MG/10 ML SYRINGE ONE (07:26)
[2020-03-01] MEDS ORDERED: PROPOFOL 20 ML ONE ×3 (07:26)
[2020-03-01] MEDS ORDERED: LIDOCAINE 1%/EPI 1:100000 (50 ML MULTI DOSE VIAL) ONE (07:32)
--- NOTE | 2020-03-01 07:52 | HP ---
[facility] - Chief Complaint Chief Complaint: left knee pain - Past Medical History Allergies/Adverse Reactions: Allergies Allergy/AdvReac Type Severity Reaction Status Date / Time No Known Allergies Allergy Verified 02/29/20 18:53 - Current Medications Current Medications: Home Medications Medication Instructions Recorded Methadone [Dolophine -] 60 mg PO DAILY 11/30/19 Alprazolam [Xanax] 4 mg PO PRN PRN 12/21/19 Losartan Potassium [Cozaar -] 1 tab PO DAILY 03/01/20 [facility] Physical Exam - Physical Examination Vital Signs: Vital Signs Period Temp Pulse Resp BP Sys/Peter Pulse Ox Last 24 Hr 98.0 F 71 18 113/67 95-95 General Appearance: Well Nourished, Well Developed, Alert & Oriented x3 ENT: Clear Lung: Normal air movement Extremities: Other (left knee- +swelling, + ttp, decr rom, + mcmurrays, nvi) Neurological: Intact, Alert, Oriented [facility] Impression/Plan - Impression/Plan Impression: left knee internal derangement Operative Procedure: left knee arthroscopy Date to be Performed: 03/01/20
[2020-03-01] MEDS ORDERED: ONDANSETRON 4 MG/2 ML VIAL IVPUSH PRN (08:34)
[2020-03-01] MEDS ORDERED: oxyCODONE HCL 5 MG TABLET PO PRN ×2 (08:34)
[2020-03-01] MEDS ORDERED: LACTATED RINGERS SOLUTION 1,000 ML IV SCH (08:45)
--- NOTE | 2020-03-01 08:48 | OP ---
Operative Note - Note: Operative Date: 03/[facility]/20 [facility] Pre-Operative Diagnosis: left knee internal derangement Operation: left knee arthroscopy with PLM Post-Operative Diagnosis: Same as Pre-op Surgeon: Michael Bowles Anesthesia: General, Local Specimens Removed: shavings Estimated Blood Loss (mls): 5
--- NOTE | 2020-03-01 11:08 | OP ---
DATE OF OPERATION: 03/01/2020 PREOPERATIVE DIAGNOSIS: Internal derangement, left knee. POSTOPERATIVE DIAGNOSIS: Internal derangement, left knee. PROCEDURE: Arthroscopy of left knee, partial lateral meniscectomy. SURGICAL ATTENDING: Michael Bowles MD COIL CONNECTOR: No ob gyn physician assistant. ANESTHESIA: General with LMA. CLOSURE: Nylon 4-0. COMPLICATIONS: None. CONDITION: To recovery room in stable condition. DESCRIPTION OF OPERATIVE PROCEDURE: Patient was taken to the operating room on March 01, 2020. General anesthesia with LMA was administered by the anesthesiologist. Left lower extremity was prepped and draped in the usual sterile fashion. The medial and lateral infrapatellar portal sites were made with a 15-blade followed by a blunt trocar after both sites were infiltrated with 1% Xylocaine with epinephrine. The scope was placed in the lateral infrapatellar portal and up into the suprapatellar pouch. The knee was inflated then with a cocktail of 10 mL of 1% Xylocaine, 10 mL of 0.5% Marcaine, and 20 mL of arthroscopic saline. After allowing the anesthetic to work in the knee the procedure was performed. The medial and lateral gutters were visualized to be clean. The undersurface of the patella and trochlea were visualized to be intact. With valgus stress on the knee, the medial compartment was entered. The medial meniscus was visualized, probed, found to be intact. The medial femoral condyle was run and found to be intact as was the medial tibial plateau. At 90 degrees, the ACL was visualized and probed, found to be intact. In the figure 4 position, the lateral compartment was entered. There was a large tear of the lateral meniscus extending from the posterior horn past the popliteus hiatus to the midportion of the meniscus. Any residual meniscus in this area was debrided completely. There was no remnant left of any meniscus past the midportion. The anterior part was balanced to have stable and smooth surface. The lateral femoral condyle was run and found to have some early grade 1-2 changes, but no full-thickness defects. It was left in situ as was the lateral tibial plateau. The knee was irrigated with copious amounts of irrigation. The portals were closed using 4-0 nylon. Prior to closure, the fluid was drained from the knee and then through the outflow portal 20 mL of 0.5% Marcaine were infused into the knee for postoperative analgesia. A sterile pressure dressing was placed over the knee. Patient awakened from anesthesia and transferred to recovery in stable condition. No complication. Estimated blood loss negligible. Ash HARVEY/[id number]
[2020-03-01 12:06] VITALS: TEMP 97.7
[2020-03-01 12:33] VITALS: BP 129/81; PULSE 60
--- NOTE | 2020-03-02 16:21 | PATH ---
Surgical Pathology Report Patient Name: LADARIUS AVILA [facility]. Rec. #: [id number] /Age/Gender: 1965 (Age: 54) / M Account: [id number] Location: [facility] SURGICAL Taken: 03/01/2020 Received: 03/01/2020 Reported: 03/02/2020 Physicians: Michael Bowles M.D. Specimen(s) Received LEFT KNEE SHAVINGS Clinical History Internal derangement left knee Final Diagnosis KNEE SHAVINGS, LEFT, ARTHROSCOPY: FRAGMENTS OF CARTILAGE, DENSE FIBROCONNECTIVE TISSUE, ADIPOSE TISSUE, AND SYNOVIUM. Electronically Signed Madiha Lira M.D. Gross Description Received in formalin, labeled "left knee shavings," is a 4.8 x 3.5 x 0.6 cm. aggregate of medina-yellow soft tissue fragments. A truck sales representative portion is submitted in one cassette. /03/01/2020 saudi/03/01/2020
== END 2020-03-01 12:50 | disposition home or self-care (01) ==
LOC: JASU-SURG 04:33
PROVIDERS: ATTEND Orthopaedic Surgery
PROC: 0SBD4ZZ Excision of Left Knee Joint, Percutaneous Endoscopic Approach (ICD-10-PCS; principal; 2020-03-01 08:00)
DX: S83.282A Other tear of lateral meniscus, current injury, left knee, initial encounter (principal); X58.XXXA Exposure to other specified factors, initial encounter; Y93.9 Activity, unspecified; Y92.9 Unspecified place or not applicable; Y99.9 Unspecified external cause status
CPT/HCPCS: 88304-TC; 94760

== ENCOUNTER 2020-09-27 04:18 | Day surgery (SDC) | payer OTHER ==
[2020-09-26 09:10] VITALS: BMI 28.1
[2020-09-27] MEDS ORDERED: ROPIVACAINE HCL 0.5% 30ML VIAL ONE (08:27)
[2020-09-27] MEDS ORDERED: MIDAZOLAM HCL 2 MG/2 ML SINGLE DOSE VIAL ONE ×2 (08:28)
[2020-09-27] MEDS ORDERED: oxyCODONE HCL 5 MG TABLET PO PRN (09:22)
[2020-09-27] MEDS ORDERED: ONDANSETRON 4 MG/2 ML VIAL IVPUSH PRN (09:22)
[2020-09-27] MEDS ORDERED: PROMETHAZINE HCL 25 MG/1 ML VIAL IVPB PRN (09:22)
[2020-09-27] MEDS ORDERED: PROPOFOL 20 ML ONE (09:28)
[2020-09-27] MEDS ORDERED: LACTATED RINGERS SOLUTION 1,000 ML IV SCH (09:30)
[2020-09-27] MEDS ORDERED: LIDOCAINE HCL/PF 2% SDV 5ML VIAL ONE (09:31)
[2020-09-27] MEDS ORDERED: ceFAZolin SODIUM 1 GM VIAL ONE (09:32)
[2020-09-27] MEDS ORDERED: SODIUM CHLORIDE 0.9% P/F 10 ML VIAL IJ ONE (09:32)
[2020-09-27] MEDS ORDERED: ceFAZolin SODIUM 1 GM VIAL IVPB ONE (09:32)
[2020-09-27] MEDS ORDERED: DEXAMETHASONE SOD PHOSPHATE 4 MG/1 ML VIAL ONE (09:48)
[2020-09-27] MEDS ORDERED: GLYCOPYRROLATE 0.2 MG/1 ML VIAL ONE (10:16)
[2020-09-27 12:33] VITALS: BP 146/87; PULSE 64; TEMP 97.5
== END 2020-09-27 12:10 | disposition home or self-care (01) ==
LOC: JASU-SURG 04:18
PROVIDERS: ATTEND Orthopaedic Surgery
PROC: 0PB94ZZ Excision of Right Clavicle, Percutaneous Endoscopic Approach (ICD-10-PCS; 2020-09-27)
PROC: 0RNJ4ZZ Release Right Shoulder Joint, Percutaneous Endoscopic Approach (ICD-10-PCS; 2020-09-27)
PROC: 0RNJ4ZZ Release Right Shoulder Joint, Percutaneous Endoscopic Approach (ICD-10-PCS; principal; 2020-09-27 09:00)
DX: M75.41 Impingement syndrome of right shoulder (principal)
CPT/HCPCS: 94760

== ENCOUNTER 2020-12-05 12:44 | Inpatient (IN) | payer OTHER ==
[2020-12-05 13:23] VITALS: BMI 33.3
[2020-12-05] MEDS ORDERED: MAG HYDROX/AL HYDROX/SIMETH 30 ML UNIT-DOSE CUP PO PRN (19:31)
[2020-12-05] MEDS ORDERED: MAGNESIUM HYDROX 2400MG/30ML ORAL SUSPENSION 30 ML CUP PO PRN (19:31)
[2020-12-05] MEDS ORDERED: NICOTINE POLACRILEX 2 MG GUM BC PRN (19:31)
[2020-12-05] MEDS ORDERED: LOPERAMIDE HCL 2 MG CAPSULE PO PRN (19:31)
[2020-12-05] MEDS ORDERED: guaiFENesin 200 MG/10 ML 10 ML UNIT-DOSE CUPS PO PRN (19:31)
[2020-12-05] MEDS ORDERED: MAGNESIUM CITRATE 300 ML BOTTLE PO PRN (19:31)
[2020-12-05] MEDS ORDERED: P-EPHED 60MG/TRIPROLIDI 2.5MG TABLET PO PRN (19:31)
[2020-12-05] MEDS ORDERED: IBUPROFEN 400 MG TABLET (FP) PO PRN (19:31)
[2020-12-05] MEDS ORDERED: ACETAMINOPHEN 325 MG TABLET (FP) PO PRN (19:31)
[2020-12-05] MEDS: hydrOXYzine PAMOATE 25 MG CAPSULE (FP) PO SCH (21:42)
[2020-12-05] MEDS ORDERED: TUBERCULIN PPD 5 TU/0.1ML VIAL ID ONE (21:44)
[2020-12-05] MEDS: PRENATAL VITAMINS W/ FOLIC ACID TABLET (FP) PO SCH (21:47)
[2020-12-05] MEDS: NICOTINE 7 MG/24 HOURS TOPICAL PATCH TD SCH (21:47)
[2020-12-05] MEDS ORDERED: THIAMINE HCL 100 MG TABLET (FP) PO SCH (22:00)
[2020-12-05] MEDS ORDERED: MELATONIN 5 MG TABLETS PO SCH (22:00)
[2020-12-06 06:57] VITALS: BP 149/89; PULSE 70; TEMP 97.5
[2020-12-06] MEDS: hydrOXYzine PAMOATE 25 MG CAPSULE (FP) PO SCH ×2 (07:18→09:31)
[2020-12-06] MEDS ORDERED: methaDONE HCL 10 MG TABLET PO ONE (09:16)
[2020-12-06] MEDS: NICOTINE 7 MG/24 HOURS TOPICAL PATCH TD SCH (09:30)
[2020-12-06] MEDS: PRENATAL VITAMINS W/ FOLIC ACID TABLET (FP) PO SCH (09:31)
[2020-12-06] MEDS ORDERED: methaDONE HCL 10 MG TABLET ONE (09:51)
[2020-12-06] MEDS ORDERED: methaDONE HCL 40 MG DISPERSABLE TABLET ONE (09:51)
[2020-12-06] MEDS ORDERED: methaDONE 40 MG, methaDONE 20 MG PO ONE (10:00)
[2020-12-07] MEDS ORDERED: methaDONE 40 MG, methaDONE 20 MG PO SCH (06:00)
[2020-12-07] MEDS ORDERED: methaDONE HCL 10 MG TABLET PO SCH (06:00)
== END 2020-12-06 14:00 | disposition home or self-care (01) | DRG 895 ==
LOC: YASAS 12:44 → Y3E 19:26
PROVIDERS: ADMIT Allergy & Immunology; ATTEND Allergy & Immunology
PROC: HZ42ZZZ Group Counseling for Substance Abuse Treatment, Cognitive-Behavioral (ICD-10-PCS; principal; 2020-12-05)
DX: F11.20 Opioid dependence, uncomplicated (principal); F13.20 Sedative, hypnotic or anxiolytic dependence, uncomplicated; F19.282 Other psychoactive substance dependence with psychoactive substance-induced sleep disorder; F19.280 Other psychoactive substance dependence with psychoactive substance-induced anxiety disorder; F17.210 Nicotine dependence, cigarettes, uncomplicated; M25.561 Pain in right knee; M25.562 Pain in left knee; M25.511 Pain in right shoulder; M25.512 Pain in left shoulder; M54.5 Low back pain; G89.29 Other chronic pain; Z98.890 Other specified postprocedural states; Z59.0 Homelessness
CPT/HCPCS: C9803; U0003; U0005